=== PATIENT | female | born 1990 | race Caucasian/White ===

== ENCOUNTER 2020-01-28 15:51 | Outpatient (REF) | payer OTHER, SELFPAY ==
--- NOTE | 2020-01-28 16:42 | XR_ITS ---
EXAMINATION: XR BILATERAL HAND AND RIGHT KNEE CLINICAL INFORMATION: Pain. COMPARISON: None TECHNIQUE: 3 views each hand. 3 views right knee. FINDINGS: Right Knee: There is a maintained tricompartment joint space. No visible fracture, loose bodies or bony erosive changes. The soft tissues are normal. Left Hand: The PIP, DIP and MCP joint spaces are maintained. No bony erosive changes, loose bodies or calcifications seen. No soft tissue swelling. No underlying fracture or dislocation. Right Hand: There are maintained PIP, DIP and MCP joint spaces. No visible fracture, dislocation or loose body seen. No bony erosive changes. There is no soft tissue calcification. No soft tissue swelling noted. XR/XR hand LT min 3V IMPRESSION: Unremarkable right knee exam. Unremarkable bilateral hand exam.
--- NOTE | 2020-01-28 16:42 | XR_ITS ---
EXAMINATION: XR BILATERAL HAND AND RIGHT KNEE CLINICAL INFORMATION: Pain. COMPARISON: None TECHNIQUE: 3 views each hand. 3 views right knee. FINDINGS: Right Knee: There is a maintained tricompartment joint space. No visible fracture, loose bodies or bony erosive changes. The soft tissues are normal. Left Hand: The PIP, DIP and MCP joint spaces are maintained. No bony erosive changes, loose bodies or calcifications seen. No soft tissue swelling. No underlying fracture or dislocation. Right Hand: There are maintained PIP, DIP and MCP joint spaces. No visible fracture, dislocation or loose body seen. No bony erosive changes. There is no soft tissue calcification. No soft tissue swelling noted. XR/XR knee RT 3V IMPRESSION: Unremarkable right knee exam. Unremarkable bilateral hand exam.
--- NOTE | 2020-01-28 16:42 | XR_ITS ---
EXAMINATION: XR BILATERAL HAND AND RIGHT KNEE CLINICAL INFORMATION: Pain. COMPARISON: None TECHNIQUE: 3 views each hand. 3 views right knee. FINDINGS: Right Knee: There is a maintained tricompartment joint space. No visible fracture, loose bodies or bony erosive changes. The soft tissues are normal. Left Hand: The PIP, DIP and MCP joint spaces are maintained. No bony erosive changes, loose bodies or calcifications seen. No soft tissue swelling. No underlying fracture or dislocation. Right Hand: There are maintained PIP, DIP and MCP joint spaces. No visible fracture, dislocation or loose body seen. No bony erosive changes. There is no soft tissue calcification. No soft tissue swelling noted. XR/XR hand RT min 3V IMPRESSION: Unremarkable right knee exam. Unremarkable bilateral hand exam.
[2020-01-28 16:56] LABS: MANUAL DIFF FLAG NO
[2020-01-28 16:57] LABS: Basophils Absolute Auto 0.1 X10*3/uL (0.0-0.2); Basophils Percent Auto 0.5 % (0-2); Eosinophils Absolute Auto 0.2 X10*3/uL (0.0-0.4); Eosinophils Percent Auto 1.6 % (0-4); Hematocrit 37.4 % (37-47); Hemoglobin 12.5 g/dl (12.0-16.0); Imm Gran Abs Auto 0.03 X10*3/uL (0.00-0.03); Imm Gran Pct Auto 0.3 % (0.0-0.4); Lymphocytes Absolute Auto 2.1 X10*3/uL (1.2-4.9); Lymphocytes Percent Auto 20.5 % (20-40); Mean Corpuscular HGB Conc 33.4 g/dl (31.0-35.0); Mean Corpuscular Volume 89.7 fL (80-98); Mean Platelet Volume 10.2 fL (9.4-12.3); Monocytes Percent Auto 9.9 % (2-11); Neutrophils Absolute Auto 6.9 X10*3/uL (2.0-8.3); Neutrophils Percent Auto 67.2 % (45-73); Platelet Count 433 X10*3/uL (160-400); Red Blood Count 4.17 X10*6/uL (4.20-5.50); Red Cell Distribution Width 13.2 % (11.0-16.0); White Blood Count 10.2 X10*3/uL (4.8-10.8)
[2020-01-28 17:36] LABS: Alanine Aminotransferase 15 U/L (0-31); Albumin Level 4.5 g/dL (3.5-5.0); Alkaline Phosphatase 102 U/L (39-117); Anion Gap 14 (12-20); Aspartate Amino Transferase 28 U/L (5-31); Bilirubin Total 0.6 mg/dL (0.0-1.0); Blood Urea Nitrogen 12 mg/dL (9-16); C Reactive Protein 0.78 mg/dL (< or = 0.50); Calcium 8.8 mg/dL (8.4-10.2); Carbon Dioxide 26 mmol/L (22-29); Chloride 103 mmol/L (96-108); Estimated Glomerular Filt Rate > 60; Glucose Random 93 mg/dL (60-115); Potassium 4.2 mmol/l (3.3-5.1); Sodium 139 mmol/L (135-145); Total Protein 7.7 g/dL (6.5-8.0)
[2020-01-28 17:49] LABS: Erythrocyte Sedimentation Rate 11 MM/HR (0-20)
== END 2020-01-28 15:52 | disposition home or self-care (01) ==
LOC: HO.LAB 15:51
PROVIDERS: PCP Internal Medicine; Referring Provider Internal Medicine; Visit Provider Student in an Organized Health Care Education/Training Program
DX: G89.29 Other chronic pain (principal); M54.5 Low back pain; M25.50 Pain in unspecified joint
CPT/HCPCS: 36415; 73130; 73562; 80053; 85025; 85652; 86140; 99212

== ENCOUNTER 2020-05-01 16:08 | Outpatient (REF) | payer OTHER, SELFPAY ==
[2020-05-01 17:21] LABS: MANUAL DIFF FLAG NO
[2020-05-01 17:24] LABS: Basophils Absolute Auto 0.1 X10*3/uL (0.0-0.2); Basophils Percent Auto 0.6 % (0-2); Eosinophils Absolute Auto 0.2 X10*3/uL (0.0-0.4); Eosinophils Percent Auto 1.9 % (0-4); Hematocrit 37.3 % (37-47); Hemoglobin 12.3 g/dl (12.0-16.0); Imm Gran Abs Auto 0.02 X10*3/uL (0.00-0.03); Imm Gran Pct Auto 0.2 % (0.0-0.4); Lymphocytes Absolute Auto 2.5 X10*3/uL (1.2-4.9); Lymphocytes Percent Auto 28.7 % (20-40); Mean Corpuscular Hemoglobin 30.1 pg (27.0-33.0); Mean Corpuscular Volume 91.2 fL (80-98); Mean Platelet Volume 10.9 fL (9.4-12.3); Monocytes Absolute Auto 0.8 X10*3/uL (0.1-1.2); Neutrophils Absolute Auto 5.1 X10*3/uL (2.0-8.3); Neutrophils Percent Auto 59.6 % (45-73); Platelet Count 508 X10*3/uL (160-400); Red Blood Count 4.09 X10*6/uL (4.20-5.50); Red Cell Distribution Width 12.9 % (11.0-16.0); White Blood Count 8.6 X10*3/uL (4.8-10.8)
[2020-05-01 17:56] LABS: Alanine Aminotransferase 16 U/L (0-31); Albumin Level 4.5 g/dL (3.5-5.0); Alkaline Phosphatase 92 U/L (39-117); Anion Gap 17 (12-20); Aspartate Amino Transferase 26 U/L (5-31); Bilirubin Total 0.3 mg/dL (0.0-1.0); Blood Urea Nitrogen 13 mg/dL (9-16); C Reactive Protein 0.65 mg/dL (< or = 0.50); Calcium 9.5 mg/dL (8.4-10.2); Carbon Dioxide 25 mmol/L (22-29); Chloride 103 mmol/L (96-108); Estimated Glomerular Filt Rate > 60; Glucose Random 97 mg/dL (60-115); Potassium 4.3 mmol/L (3.3-5.1); Sodium 141 mmol/L (135-145)
[2020-05-01 18:11] LABS: Erythrocyte Sedimentation Rate 15 MM/HR (0-20)
== END 2020-05-01 16:09 | disposition home or self-care (01) ==
LOC: HO.LAB 16:08
PROVIDERS: PCP Internal Medicine; Visit Provider Student in an Organized Health Care Education/Training Program
DX: G89.29 Other chronic pain (principal); M54.5 Low back pain; M25.561 Pain in right knee
CPT/HCPCS: 36415; 80053; 85025; 85652; 86140; 99212

== ENCOUNTER 2020-05-11 15:06 | Outpatient (REF) | payer OTHER, SELFPAY ==
--- NOTE | ~2020-05-11 | MR_ITS ---
EXAMINATION: MR KNEE WITHOUT CONTRAST, RIGHT CLINICAL INFORMATION: Knee pain. COMPARISON: None TECHNIQUE: MRI of the knee without contrast was performed using routine sequences on a high-field scanner. FINDINGS: MENISCI: Medial Meniscus: Intact. Lateral Meniscus: Intact. LIGAMENTS: Cruciate: Intact. Collateral: Intact. EXTENSOR MECHANISM: Intact. ARTICULAR CARTILAGE/BONE: No focal cartilage loss in 3 compartments. No suspicious marrow signal changes. No fracture. JOINT FLUID AND BURSAE: Small effusion. Tiny Mendiola's cyst. MR/MR knee RT wo con IMPRESSION: 1. Menisci appear intact without evidence of discrete tear. 2. Cruciate and collateral ligaments appear intact. 3. Small effusion.
== END 2020-05-11 15:07 | disposition home or self-care (01) ==
LOC: HO.MRI 15:06
PROVIDERS: Visit Provider Student in an Organized Health Care Education/Training Program
DX: M25.561 Pain in right knee (principal); G89.29 Other chronic pain
CPT/HCPCS: 73721

== ENCOUNTER → 2020-10-06 11:34 | Outpatient (BNVA) | payer OTHER, SELFPAY | PROVIDERS: PCP Internal Medicine; Visit Provider Student in an Organized Health Care Education/Training Program | DX: M54.5 Low back pain (principal); G89.29 Other chronic pain | CPT/HCPCS: 99212 ==

== ENCOUNTER 2020-10-09 07:57 | Outpatient (REF) | payer OTHER, SELFPAY ==
[2020-10-09 11:22] LABS: Cholesterol 169 mg/dL; HDL Cholesterol 54 mg/dL; LDL Cholesterol Calculated 94 mg/dl; Triglycerides 107 mg/dL
[2020-10-09 11:44] LABS: TSH reflex Free T4 0.36 uIU/mL (0.32-4.0); Vitamin D 25-OH Total 33.3 ng/mL (>30)
== END 2020-10-09 07:58 | disposition home or self-care (01) ==
LOC: HO.WFDLDS 07:57
PROVIDERS: Visit Provider Internal Medicine
DX: Z00.01 Encounter for general adult medical examination with abnormal findings (principal)
CPT/HCPCS: 36415; 80061; 82306; 84443

== ENCOUNTER 2020-10-14 12:10 | Outpatient (REF) | payer OTHER, SELFPAY ==
--- NOTE | ~2020-10-14 | MR_ITS ---
EXAMINATION: MR LUMBAR SPINE WITHOUT CONTRAST CLINICAL INFORMATION: Lower back pain, tightness, stiffness. Right leg/knee pain. COMPARISON: Lumbar spine radiographs dated 05/23/2019. TECHNIQUE: MRI of the lumbar spine was obtained using routine sequences without contrast. FINDINGS: VERTEBRAL BODIES AND PARASPINAL STRUCTURES: Normal vertebral body alignment. The lumbar lordosis is maintained. No acute fracture or subluxation. No loss of vertebral body or intervertebral disc height. The intervertebral disks are well hydrated. No abnormal marrow signal. No evidence of acute osseous injury. Simple right-sided renal cyst. Findings are not clinically significant and no follow-up imaging is recommended. The visualized paraspinal soft tissues are otherwise unremarkable. CONUS MEDULLARIS AND CAUDA EQUINA: Normal, terminating at the level of L1. SPINAL LEVELS: T12-L1: No significant disc bulge. No central canal or neural foraminal stenosis. L1-L2: No significant disc bulge. No central canal or neural foraminal stenosis. L2-L3: No significant disc bulge. No central canal or neural foraminal stenosis. L3-L4: No significant disc bulge. No central canal or neural foraminal stenosis. L4-L5: No significant disc bulge. No central canal or neural foraminal stenosis. L5-S1: No significant disc bulge. No central canal or neural foraminal stenosis. MR/MR lumbar spine wo con IMPRESSION: Unremarkable examination.
== END 2020-10-14 12:11 | disposition home or self-care (01) ==
LOC: HO.MRI 12:10
PROVIDERS: Visit Provider Student in an Organized Health Care Education/Training Program
DX: M54.5 Low back pain (principal); G89.29 Other chronic pain
CPT/HCPCS: 72148

== ENCOUNTER 2020-10-22 08:49 | Outpatient (REF) | payer OTHER, SELFPAY ==
[2020-10-25 16:47] LABS: TS Negative Control Passed; TS Panel A 0; TS Panel B 0; TS Positive Control Passed; TSpotTB Negative (SeeBelow)
== END 2020-10-22 08:50 | disposition home or self-care (01) ==
LOC: HO.HMGCLDS 08:49
PROVIDERS: PCP Internal Medicine; Visit Provider Internal Medicine
DX: Z11.1 Encounter for screening for respiratory tuberculosis (principal)
CPT/HCPCS: 36415; 86481

== ENCOUNTER → 2021-02-12 10:00 | Outpatient (BNVA) | payer OTHER, SELFPAY | PROVIDERS: PCP Internal Medicine; Visit Provider Nurse Practitioner Family | DX: M54.59 Other low back pain (principal); G89.29 Other chronic pain | CPT/HCPCS: 99212 ==

== ENCOUNTER 2021-07-02 11:23 | Outpatient (REF) | payer OTHER, SELFPAY ==
[2021-07-02 13:24] LABS: MANUAL DIFF FLAG NO
[2021-07-02 13:27] LABS: Basophils Absolute Auto 0.1 X10*3/uL (0.0-0.2); Basophils Percent Auto 0.5 % (0-2); Eosinophils Absolute Auto 0.2 X10*3/uL (0.0-0.4); Eosinophils Percent Auto 1.6 % (0-4); Hemoglobin 13.7 g/dl (12.0-16.0); Imm Gran Abs Auto 0.04 X10*3/uL (0.00-0.03); Imm Gran Pct Auto 0.4 % (0.0-0.4); Lymphocytes Absolute Auto 1.4 X10*3/uL (1.2-4.9); Lymphocytes Percent Auto 14.9 % (20-40); Mean Corpuscular HGB Conc 33.4 g/dl (31.0-35.0); Mean Corpuscular Hemoglobin 30.7 pg (27.0-33.0); Mean Corpuscular Volume 91.9 fL (80.0-98.0); Mean Platelet Volume 10.7 fL (9.4-12.3); Monocytes Absolute Auto 0.6 X10*3/uL (0.1-1.2); Monocytes Percent Auto 6.5 % (2-11); Neutrophils Absolute Auto 6.9 x10*3/uL (2.0-8.3); Neutrophils Percent Auto 76.1 % (45-73); Platelet Count 460 X10*3/uL (160-400); Red Blood Count 4.46 X10*6/uL (4.20-5.50); White Blood Count 9.1 X10*3/uL (4.8-10.8)
[2021-07-02 14:04] LABS: Erythrocyte Sedimentation Rate 9 MM/HR (0-20)
[2021-07-02 14:34] LABS: Alanine Aminotransferase 17 U/L (0-31); Anion Gap 13 (12-20); Blood Urea Nitrogen 9 mg/dL (9-16); C Reactive Protein 1.74 mg/dL (< or = 0.50); Calcium 9.3 mg/dL (8.4-10.2); Carbon Dioxide 26 mmol/L (22-29); Chloride 104 mmol/L (96-108); Cholesterol 214 mg/dL; Estimated Glomerular Filt Rate > 60; Glucose Fasting 101 mg/dL (60-99); HDL Cholesterol 48 mg/dL; LDL Cholesterol Calculated 139 mg/dl; Potassium 4.5 mmol/L (3.3-5.1); Sodium 138 mmol/L (135-145); Triglycerides 136 mg/dL
[2021-07-02 14:55] LABS: TSH reflex Free T4 0.39 uIU/mL (0.32-4.0); Vitamin D 25-OH Total 15.3 ng/mL (>30)
== END 2021-07-02 11:24 | disposition home or self-care (01) ==
LOC: HO.WFDLDS 11:23
PROVIDERS: Visit Provider Internal Medicine
DX: Z00.01 Encounter for general adult medical examination with abnormal findings (principal); M25.50 Pain in unspecified joint; F32.A Depression, unspecified; F41.9 Anxiety disorder, unspecified; M79.7 Fibromyalgia
CPT/HCPCS: 36415; 80048; 80061; 82306; 84443; 84460; 85025; 85652; 86140

== ENCOUNTER 2022-07-18 10:09 | Outpatient (REF) | payer OTHER, SELFPAY ==
[2022-07-18 11:42] LABS: Hematocrit 41.8 % (37.0-47.0); Hemoglobin 14.2 g/dl (12.0-16.0); Mean Corpuscular Hemoglobin 30.9 pg (27.0-33.0); Mean Corpuscular Volume 91.1 fL (80.0-98.0); Mean Platelet Volume 10.3 fL (9.4-12.3); Platelet Count 470 X10*3/uL (160-400); Red Blood Count 4.59 X10*6/uL (4.20-5.50); Red Cell Distribution Width 12.4 % (11.0-16.0); White Blood Count 8.6 X10*3/uL (4.8-10.8)
[2022-07-18 12:35] LABS: Alanine Aminotransferase 14 U/L (0-31); Albumin Level 4.4 g/dL (3.5-5.0); Alkaline Phosphatase 81 U/L (39-117); Anion Gap 14 (12-20); Aspartate Amino Transferase 24 U/L (5-31); Bilirubin Total 0.5 mg/dL (0.0-1.0); Blood Urea Nitrogen 9 mg/dL (9-16); Calcium 9.5 mg/dL (8.4-10.2); Carbon Dioxide 26 mmol/L (22-29); Chloride 105 mmol/L (96-108); Cholesterol 173 mg/dL; Estimated Glomerular Filt Rate > 60; Glucose Fasting 94 mg/dL (60-99); HDL Cholesterol 38 mg/dL; LDL Cholesterol Calculated 99 mg/dl; Potassium 4.7 mmol/L (3.3-5.1); Sodium 140 mmol/L (135-145); Total Protein 7.5 g/dL (6.5-8.0); Triglycerides 180 mg/dL
[2022-07-18 12:36] LABS: TSH reflex Free T4 0.66 uIU/mL (0.32-4.0)
== END 2022-07-18 10:10 | disposition home or self-care (01) ==
LOC: HO.WFDLDS 10:09
PROVIDERS: Visit Provider Nurse Practitioner Family
DX: E66.9 Obesity, unspecified (principal); F32.A Depression, unspecified; F41.9 Anxiety disorder, unspecified; J45.20 Mild intermittent asthma, uncomplicated; M25.50 Pain in unspecified joint; M79.7 Fibromyalgia; M54.50 Low back pain, unspecified
CPT/HCPCS: 36415; 80053; 80061; 82306; 84443; 85027

== ENCOUNTER 2022-07-22 11:23 | Outpatient (REF) | payer OTHER, SELFPAY ==
[2022-07-22 13:56] LABS: Hematocrit 42.2 % (37.0-47.0); Hemoglobin 14.4 g/dl (12.0-16.0); Mean Corpuscular HGB Conc 34.1 g/dl (31.0-35.0); Mean Corpuscular Hemoglobin 31.2 pg (27.0-33.0); Mean Corpuscular Volume 91.5 fL (80.0-98.0); Mean Platelet Volume 10.6 fL (9.4-12.3); Platelet Count 464 X10*3/uL (160-400); Red Blood Count 4.61 X10*6/uL (4.20-5.50); Red Cell Distribution Width 12.2 % (11.0-16.0); White Blood Count 8.2 X10*3/uL (4.8-10.8)
== END 2022-07-22 11:24 | disposition home or self-care (01) ==
LOC: HO.WFDLDS 11:23
PROVIDERS: Visit Provider Nurse Practitioner Family
DX: D75.839 Thrombocytosis, unspecified (principal)
CPT/HCPCS: 36415; 85027

== ENCOUNTER 2022-09-28 09:28 | Outpatient (REF) | payer OTHER, SELFPAY ==
[2022-09-30 20:54] LABS: TS Negative Control Passed; TS Panel A 0; TS Panel B 0; TS Positive Control Passed; TSpotTB Negative (Negative)
== END 2022-09-28 09:29 | disposition home or self-care (01) ==
LOC: HO.WFDLDS 09:28
PROVIDERS: Visit Provider Nurse Practitioner Family
DX: Z11.1 Encounter for screening for respiratory tuberculosis (principal)
CPT/HCPCS: 36415; 86481

== ENCOUNTER → 2022-10-26 14:05 | Outpatient (BNV) | payer OTHER, SELFPAY | PROVIDERS: PCP Nurse Practitioner Family; Visit Provider Internal Medicine | DX: D75.839 Thrombocytosis, unspecified (principal) | CPT/HCPCS: 99204 ==

== ENCOUNTER 2022-12-30 08:31 | Outpatient (AMB) | payer OTHER, SELFPAY ==
--- NOTE | 2022-12-30 08:32 | MHC.PC.OV ---
Vital Signs 12/30/22 08:33 Height 5 ft 4 in Weight 193 lb 8 oz BMI 33.2 BP 118/78 Blood Pressure Location Lt brachial Position Sitting Respiration 18 Pulse 80 Pulse Source Pulse Oximeter Temp 98.3 F Temp Source Oral Pulse Oximetry (%) 96 Oxygen Delivery Method Room Air Intake Visit Reasons: Physical exam Intake Note: Patient is here for her physical today. Patient would like to talk about hormone testing. Is last menstrual period known: Yes Last menstrual period: 12/23/22 Allergies seasonal allergies Allergy (Intermediate, Uncoded 12/30/22 08:43) Itchy Eyes Medication List - Last Reconciled 12/30/22 by Prince Lindo CNP albuterol sulfate 90 mcg/actuation (Ventolin HFA) 2 puffs inhalation Q4-6H PRN duloxetine 30 mg PO BID 30 days Tobacco use date assessed: 12/30/22 Dental Screening Dental Screen Date: 12/30/22 Did you have a dental visit in the last 12 months?: Yes Did you have a dental problem in the last 6 months where you did not have access to dental care?: No Was dental information given to patient?: Patient has dentist HPI HPI Comments History of Present Illness Details 32-year-old female presents for a complete physical exam. She has past medical history significant for asthma, anxiety, and depression. She was last evaluated in the office in July for anxiety depression and was advised to follow-up in a month. She admits to taking her medications as prescribed with controlled anxiety and depression symptoms. She denies acutes symptoms at this time. She was evaluated by [facility] hematology on 10/26/2022 for chronic mild thrombocytosis and was deemed medically stable with no required follow up. She notes that her last pap smear test was last year at [facility]: normal She states she stopped taking her Ortho Tri-Cyclen oral contraceptive3 months ago because she is trying to get She reports h/o hot flashes, almost every night, for the past year and wish to get hormone testing. [facility] Medical History Chronic tonsillitis History of COVID-19 Fibromyalgia Anxiety and depression History of depression History of insomnia Mild intermittent asthma Low back pain Hx of ectopic Surgical History Hx of unilateral salpingectomy History of loop electrical excision procedure (LEEP) Family History Mother Arthritis Fibromyalgia HTN (hypertension) Hyperlipidemia Mental health disorder Father HTN (hypertension) Arthritis Hyperlipidemia Paternal Grandmother Diabetes Maternal Grandmother Heart disease Social History Household Members: Family Housing: Apartment Alcohol intake: current Patient Tobacco Use Status: Never used Tobacco e-Cigarette/Vaping Use: Never Used Second Hand Smoke Exposure: No service: No Current occupational status: employed Current occupation: [employer] Current occupational exposures/hazards: No Cognitive needs: No Hearing needs: No Vision needs: No Female Reproductive History Menstrual Date of last menstrual period: 12/23/22 Questionnaire PHQ-9 Over the last 2 weeks, how often have you been bothered by any of the following problems? 1. Little interest or pleasure in doing things: not at all 2. Feeling down, depressed, or hopeless: not at all 3. Trouble falling or staying asleep, or sleeping too much: not at all 4. Feeling tired or having little energy: not at all 5. Poor appetite or overeating: not at all 6. Feeling bad about yourself - or that you are a failure or have let yourself or your family down: not at all 7. Trouble concentrating on things, such as reading the newspaper or watching television: not at all 8. Moving or speaking so slowly that other people could have noticed. Or the opposite - being so fidgety or restless that you have been moving around a lot more than usual: not at all 9. Thoughts that you would be better off or of hurting yourself in some way: not at all Total score: 0 Depression Screening Interpretation: Negative Depression Screening Done: Yes Source: Developed by Drs. Jorge Hazel, Carmita Martinez, Eric Duron and colleagues, with an educational emily from [employer]. Thrive Questionnaire Date Thrive assessed: 07/18/22 JAVIER-7 AMB Questionnaire JAVIER-7 Date JAVIER - 7 assessed: 12/30/22 Feeling nervous, anxious, or on edge: 0 = Not at all Not being able to stop or control worryin = Not at all Worrying too much about different things: 0 = Not at all Trouble relaxin = Not at all Being so restless that it is hard to sit still: 0 = Not at all Becoming easily annoyed or irritable: 0 = Not at all Feeling afraid as if something awful might happen: 0 = Not at all Total JAVIER-7 score (0-4 normal; 5-9 mild; 10-14 moderate; 15-21 severe): 0 Source: Developed by Drs. Jorge Hazel, Carmita Martinez, Eric Duron and colleagues, with an educational emily from [employer]. Review of Systems Const Details: Denies chills, Denies fatigue, Denies fever(s), Denies headache(s) and Denies weakness HEENT Denies change in vision, Denies dizziness, Denies headache(s), Denies hearing loss, Denies nasal congestion, Denies sinus pain, Denies sinus pressure and Denies sore throat Card Denies chest pain, Denies lightheadedness, Denies dyspnea and Denies other (palpitations) Resp Denies cough, Denies dyspnea and Denies wheezing GI Denies abdominal pain, Denies melena, Denies hematochezia, Denies change in bowel habits, Denies dyspepsia and Denies nausea Denies hematuria and Denies dysuria Musc Denies abnormal gait, Denies myalgias, Denies arthralgias, Denies numbness and Denies tingling Skin/Breast Denies rash, Denies unusual bruising and Denies wounds Neuro Denies abnormal gait, Denies dizziness, Denies headache(s), Denies memory loss, Denies numbness, Denies Sensory deficit (Neuro), Denies tingling and Denies weakness Psych Denies anxiety, Denies depression and Denies memory loss Endo Denies cold intolerance, Denies fatigue, Denies heat intolerance, Denies polydipsia and Denies polyuria Ollie/Lymph Denies easy bleeding and Denies easy bruising Aller/Immun Denies wheezing Physical exam (Primary Care) Vital Signs: Last Vital Signs Temp 98.3 F 12/30/22 08:33 Pulse 80 12/30/22 08:33 BP 118/78 12/30/22 08:33 Pulse Ox 96 12/30/22 08:33 Oxygen Delivery Method Room Air 12/30/22 08:33 BMI result Body Mass Index 33.2 Tobacco/Smoking Status: Tobacco use Status Tobacco use date assessed 12/30/22 12/30/22 08:47 Patient Tobacco Use Status Never used Tobacco 12/30/22 08:47 e-Cigarette/Vaping Use Never Used 12/30/22 08:47 Depression Screening Interpretation: Negative Thrive Assessment: Date of Thrive Assessment Date Thrive assessed 07/18/22 12/30/22 08:47 Const Other: General: no acute distress, well developed, alert and awake Nutritional Appearance: well nourished Orientation/consciousness: patient oriented x3 HENMT Head: Yes normocephalic and Yes atraumatic Ears: hearing grossly normal bilaterally and TM's normal bilaterally General nose exam: Normal external nose present and Normal nares present Mouth: Normal oral and palatal mucosa present and moist mucous membranes Teeth and gingiva: dentition normal Throat: Yes oropharynx normal Eyes Pupils: Equal, round and reactive pupils present and Pupil accommodation reflex normal EOM: EOMs intact bilaterally Neck Neck: Yes normal visual inspection, Yes no lymphadenopathy and Yes trachea midline Thyroid: Thyroid normal Carotids: no bruits Lymphatic: no lymphadenopathy noted Chest Chest palpation & inspection: normal inspection of the chest Resp Effort & Inspection: normal respiratory effort Auscultation: clear to auscultation bilaterally Cardio Rate: regular rate Rhythm: regular rhythm Heart sounds: S1 normal heart sound present, S2 normal heart sound present, no gallops, no murmurs and no rubs Bruits: no abdominal aortic bruits and no carotid bruits GI Palpation (GI): No Abdominal aortic bruit present, Soft to palpation, nontender, No hepatosplenomegaly present and No Rebound tenderness present Auscultation: normal bowel sounds General: Yes no CVA tenderness Back/Spine/Pelvis Back: no CVA tenderness Cervical Spine: cervical ROM normal and No Cervical spine tenderness Thoracic/Lumbar Spine: thoraco-lumbar ROM normal, No pain with thoraco-lumbar ROM, No thoracic spinal tenderness and No lumbar spinal tenderness Skin General: warm and dry. Normal skin color. Normal skin turgor Lesions: no lesions Rashes: no rashes Trauma: no lacerations or abrasions Wounds: no wounds Nails: normal Neuro General: patient oriented x3, gait normal and CN's II-XI intact bilaterally Cranial nerves: Yes Equal, round and reactive pupils present Cognition (Neuro): normal cognition Gait exam (Neuro): Normal gait present Motor exam (neuro): 5/5 motor strength present throughout Sensory Exam: No Sensory deficit (Neuro) Deep tendon reflexes (DTR's): Right patellar reflex intensity grade: 2+ and Left patellar reflex intensity grade: 2+ Extrem General: Yes normal to inspection, No edema and No calf tenderness Psych Appearance: grossly normal Affect: normal affect Attitude: cooperative Thought process: Normal thought process present Assessment and Plan Assessment & Plan (1) Normal physical examination, routine: Code(s): Z00.00 - Encounter for general adult medical examination without abnormal findings Plan: No significant physical restrictions or limitations noted Advised to follow-up with chemical laboratory technician to address nighttime hot flashes Follow-up in 3 months for anxiety and depression Return sooner with symptoms or concerns Verbalized understanding and agreed with treatment plan. (2) Anxiety and depression: Code(s): F41.9 - Anxiety disorder, unspecified; F32.A - Depression, unspecified Plan: PHQ-9 and JAVIER-7 scores are negative Reports controlled anxiety and depression symptoms on duloxetine Continue to take duloxetine as prescribed Routine exercise encouraged Follow-up in 4 months or return sooner with worsening or new symptoms Verbalized understanding and agreed with treatment plan. Coding Level of Care Code Est Pt Prev Care [id number]) Diagnoses Normal physical examination, routine Z00.00 Anxiety and depression F41.9; F32.A
[2022-12-30 08:33] VITALS: BP 118/78; PULSE 80; RESP 18; TEMP 36.8; O2SAT 96; BMI 33.2
== END 2022-12-30 09:03 | disposition home or self-care (01) ==
PROVIDERS: PCP Nurse Practitioner Family; Visit Provider Nurse Practitioner Family
DX: Z00.00 Encounter for general adult medical examination without abnormal findings (principal); F41.9 Anxiety disorder, unspecified; F32.A Depression, unspecified
CPT/HCPCS: 99395

== ENCOUNTER 2024-01-31 07:58 | Outpatient (AMB) | payer OTHER, SELFPAY ==
--- NOTE | 2024-01-31 08:02 | A.OFFPC_ITS ---
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: No Is last menstrual period known: Yes Last menstrual period: 01/23/24 Post menopausal: No Patient : No Allergies seasonal allergies Allergy (Intermediate, Uncoded 01/31/24 08:14) Itchy Eyes Medication List - Last Reconciled 01/31/24 by Prince Lindo CNP albuterol sulfate 90 mcg/actuation (Ventolin HFA) 2 puffs inhalation Q4-6H PRN duloxetine 30 mg PO BID 30 days Tobacco use date assessed: 01/31/24 Dental Screening Dental Screen Date: 01/31/24 Did you have a dental visit in the last 12 months?: Yes Did you have a dental problem in the last 6 months where you did not have access to dental care?: No Was dental information given to patient?: Patient has dentist HPI HPI Comments History of Present Illness Details 33-year-old female presents for an exten ded physical exam Her last office visit was on 12/30/2022 She has past medical history significant for asthma, thrombocytosis, back pain, fibromyalgia, anxiety, and depression She has not taking duloxetine for several months. She abruptly stopped taking the medication because she was trying to conceive. However, she was told she is unable to conceive and would have to do an IVF She notes that her anxiety and depressive symptoms are a little controlled. She notes anxiety and depressive symptoms. Her sleep is frequently interrupted by dreams or thinking about past stuff. She has history of psychotherapy but does not interested in therapy. She wants to resume taking Duloxetine She generally eats healthy. She does not exercise. She is willing to be referred to a dietitian Nonsmoker. Drinks 2 glasses of wine twice monthly. 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 early this eary: normal Last Tdap was on 07/18/2017 She has not been vaccinated for the flu vaccine this season and requests the vaccine She received the initial covid vaccines but not interested in the boosters [facility] Medical History Chronic tonsillitis History of COVID-19 Fibromyalgia Anxiety and depression History of depression History of insomnia Mild intermittent asthma Low back pain Hx of ectopic Surgical History Hx of unilateral salpingectomy History of loop electrical excision procedure (LEEP) Family History Mother Arthritis Fibromyalgia HTN (hypertension) Hyperlipidemia Mental health disorder Father HTN (hypertension) Arthritis Hyperlipidemia Paternal Grandmother Diabetes Maternal Grandmother Heart disease Social History Household Members: Family Housing: Apartment Alcohol intake: current Patient Tobacco Use Status: Never used Tobacco e-Cigarette/Vaping Use: Never Used Second Hand Smoke Exposure: No service: No Current occupational status: employed Current occupation: [employer]ER Current occupational exposures/hazards: No Cognitive needs: No Hearing needs: No Vision needs: No Female Reproductive History Menstrual Date of last menstrual period: 01/23/24 Questionnaire PHQ-9 Over the last 2 weeks, how often have you been bothered by any of the following problems? 1. Little interest or pleasure in doing things: several days 2. Feeling down, depressed, or hopeless: several days 3. Trouble falling or staying asleep, or sleeping too much: several days 4. Feeling tired or having little energy: several days 5. Poor appetite or overeating: several days 6. Feeling bad about yourself - or that you are a failure or have let yourself or your family down: not at all 7. Trouble concentrating on things, such as reading the newspaper or watching television: several days 8. Moving or speaking so slowly that other people could have noticed. Or the opposite - being so fidgety or restless that you have been moving around a lot more than usual: several days 9. Thoughts that you would be better off or of hurting yourself in some way: not at all Total score: 7 Depression Screening Interpretation: Positive Depression Screening Done: Yes 96284 - PHQ-9 Billing: Yes Source: Developed by Drs. Jorge Hazel, Carmita Martinez, Eric Duron and colleagues, with an educational emily from [employer]. Thrive Questionnaire Date Thrive assessed: 01/31/24 I am a: Patient What is your living situation today?: I have a steady place to live Within the past 12 months, did the food you bought not last and you didn't have the money to get more?: I choose not to answer this question Within the past 12 months, did you worry whether your food would run out before you got money to buy more?: I choose not to answer this question Do you have trouble paying for medicines?: No Do you have trouble getting transportation to medical appointments?: No Do you have trouble paying your heating and electricity bill?: No Do you have trouble taking care of your child, family member or friend?: No Do you have trouble with day-to-day activities such as bathing, preparing meals, shopping, managing finances, etc.?: No Are you currently unemployed and looking for a job?: No Are you interested in more education?: No Please select the resources that you would like help with: None Currently or been in a relationship where the following occur: No concerns reported THRIVE Score: 0 AUDIT C Alcohol Use Questionnaire (AUDIT-C) 1. How often do you have a drink containing alcohol?: Monthly or less 2. How many drinks containing alcohol do you have on a typical day when you are drinking?: 3 or 4 3. How often do you have six or more drinks on one occasion?: Less than monthly Total Score: 3 Score Reviewed/Action Taken: Yes JAVIER-7 AMB Questionnaire JAVIER-7 Date JAVIER - 7 assessed: 01/31/24 Feeling nervous, anxious, or on edge: 2 = More than half the days Not being able to stop or control worryin = More than half the days Worrying too much about different things: 2 = More than half the days Trouble relaxin = More than half the days Being so restless that it is hard to sit still: 2 = More than half the days Becoming easily annoyed or irritable: 2 = More than half the days Feeling afraid as if something awful might happen: 2 = More than half the days Total JAVIER-7 score (0-4 normal; 5-9 mild; 10-14 moderate; 15-21 severe): 14 Source: Developed by Carmita Krueger.W. Juan, Eric Duron and colleagues, with an educational emily from [employer]. JAVIER-7 Assessment Billing JAVIER-7 Assessment Tool: JAVIER-7 Assessment 52232 ACT Questionnaire In the past 4 weeks, how much of the time did your asthma keep you from getting as much done at work, school or at home?: A little of the time During the past 4 weeks, how often have you had shortness of breath?: 3-6 times a week During the past 4 weeks, how often did your asthma symptoms wake you up at night or earlier than usual in the morning?: Once or twice per week During the past 4 weeks, how often have you had to use your rescue inhaler or nebulizer medication?: 1-2 times a week How would you rate your asthma control during the past 4 weeks?: Well controlled ACT Interpretation: Positive Score: 17 Review of Systems Const Details: Denies chills, Denies fatigue, Denies fever(s), Denies headache(s) and Denies weakness HEENT Denies change in vision, Denies dizziness, Denies headache(s), Denies hearing loss, Denies nasal congestion, Denies sinus pain, Denies sinus pressure and Denies sore throat Card Denies chest pain, Denies lightheadedness, Denies dyspnea and Denies other (palpitations) Resp Denies cough, Denies dyspnea and Denies wheezing GI Denies abdominal pain, Denies melena, Denies hematochezia, Denies change in bowel habits, Denies dyspepsia and Denies nausea Denies hematuria and Denies dysuria Musc Denies abnormal gait, Denies myalgias, Denies arthralgias, Denies numbness and Denies tingling Skin/Breast Denies rash, Denies unusual bruising and Denies wounds Neuro Denies abnormal gait, Denies dizziness, Denies headache(s), Denies memory loss, Denies numbness, Denies Sensory deficit (Neuro), Denies tingling and Denies weakness Psych Denies anxiety, Denies depression and Denies memory loss Endo Denies cold intolerance, Denies fatigue, Denies heat intolerance, Denies polydipsia and Denies polyuria Ollie/Lymph Denies easy bleeding and Denies easy bruising Aller/Immun Denies wheezing Physical exam (Primary Care) Vital Signs: Last Vital Signs Temp 98.7 F 01/31/24 08:10 Pulse 79 01/31/24 08:10 Resp 16 01/31/24 08:10 BP 110/74 01/31/24 08:10 Pulse Ox 97 01/31/24 08:10 Oxygen Delivery Method Room Air 01/31/24 08:10 BMI result Body Mass Index 34.4 Tobacco/Smoking Status: Tobacco use Status Tobacco use date assessed 01/31/24 01/31/24 08:09 Patient Tobacco Use Status Never used Tobacco 01/31/24 08:06 e-Cigarette/Vaping Use Never Used 01/31/24 08:06 PHQ-9: PHQ-9 Score PHQ-9: Total score 7 01/31/24 08:51 Depression Screening Interpretation: Positive Thrive Assessment: Date of Thrive Assessment Date Thrive assessed 01/31/24 01/31/24 08:09 Currently or been in a relationship where the following occur: No concerns reported Const Other: General: no acute distress, well developed, alert and awake Nutritional Appearance: well nourished Orientation/consciousness: patient oriented x3 HENMT Head: Yes normocephalic and Yes atraumatic Ears: hearing grossly normal bilaterally and TM's normal bilaterally General nose exam: Normal external nose present and Normal nares present Mouth: Normal oral and palatal mucosa present and moist mucous membranes Teeth and gingiva: dentition normal Throat: Yes oropharynx normal Eyes Pupils: Equal, round and reactive pupils present and Pupil accommodation reflex normal EOM: EOMs intact bilaterally Neck Neck: Yes normal visual inspection, Yes no lymphadenopathy and Yes trachea midline Thyroid: Thyroid normal Carotids: no bruits Lymphatic: no lymphadenopathy noted Chest Chest palpation & inspection: normal inspection of the chest Resp Effort & Inspection: normal respiratory effort Auscultation: clear to auscultation bilaterally Cardio Rate: regular rate Rhythm: regular rhythm Heart sounds: S1 normal heart sound present, S2 normal heart sound present, no gallops, no murmurs and no rubs Bruits: no abdominal aortic bruits and no carotid bruits GI Palpation (GI): No Abdominal aortic bruit present, Soft to palpation, nontender, No hepatosplenomegaly present and No Rebound tenderness present Auscultation: normal bowel sounds General: Yes no CVA tenderness Back/Spine/Pelvis Back: no CVA tenderness Cervical Spine: cervical ROM normal and No Cervical spine tenderness Thoracic/Lumbar Spine: thoraco-lumbar ROM normal, No pain with thoraco-lumbar ROM, No thoracic spinal tenderness and No lumbar spinal tenderness Skin General: warm and dry. Normal skin color. Normal skin turgor Lesions: no lesions Rashes: no rashes Trauma: no lacerations or abrasions Wounds: no wounds Nails: normal Neuro General: patient oriented x3, gait normal and CN's II-XI intact bilaterally Cranial nerves: Yes Equal, round and reactive pupils present Cognition (Neuro): normal cognition Gait exam (Neuro): Normal gait present Motor exam (neuro): 5/5 motor strength present throughout Sensory Exam: No Sensory deficit (Neuro) Deep tendon reflexes (DTR's): Right patellar reflex intensity grade: 2+ and Left patellar reflex intensity grade: 2+ Extrem General: Yes normal to inspection, No edema and No calf tenderness Psych Appearance: grossly normal Affect: normal affect Attitude: cooperative Thought process: Normal thought process present Office Procedures Flu Questionnaire Does the patient have a severe egg allergy?: No Does the patient have severe life threatening allergies?: No Does the patient have a fever or illness today?: No Has the patient ever had Guillain-[place] Syndrome?: No Has the patient ever had any past reaction to a flu shot?: No Immunizations Fluarix Triv [id number] (PF) 45 mcg (15 mcg x 3)/0.5 mL IM syringe Performing Provider: Prince Lindo CNP [place] [facility] Administered by: Samira Darling RN on 01/31/24 08:52 Dose Route Admin Location Dispensed Lot Number Expiration Date [facility] [employer] 0.5 mL IM Left Deltoid 0.5 mL [id number] 09/23/24 [id number] NOZA VIS Given Date VIS Provided VIS Publication Date 01/31/24 Single Vaccine 20 Eligibility Eligibility Date Funding Source Not [facility] Eligible 01/31/24 Private Coding Level of Care Code Est Pt Prev Care 18-39y(77069) Diagnoses Normal physical examination, routine Z00.00 Anxiety and depression F41.9; F32.A Sleep disturbance G47.9 Mild intermittent asthma J45.20 Obesity (BMI 30.0-34.9) E66.9 Routine eye exam Z01.00 Flu vaccine need Z23 Laboratory tests ordered as part of a complete physical exam (CPE) Z00.00 Additional Codes JAVIER-7 Assessment Billing - JAVIER-7 Assessment Tool: JAVIER-7 Assessment 78173 ([id number]) PHQ-9 - 18480 - PHQ-9 Billing: Yes ([id number]) Asthma Control Questionnaire - ACT Interpretation: Positive ([id number]) Assessment & Plan Assessment & Plan (1) Normal physical examination, routine: Code(s): Z00.00 - Encounter for general adult medical examination without abnormal findings Category: Medical Plan: No significant functional limitation noted Continue current treatment regimen Healthy diet and routine exercise encouraged Follow-up in 2 weeks for anxiety, depression, and labs review or sooner with worsening or new symptoms Verbalized understanding and agreed with the treatment plan (2) Anxiety and depression: Code(s): F41.9 - Anxiety disorder, unspecified; F32.A - Depression, unspecified Category: Medical Plan: Reports anxiety and depressive symptoms. She abruptly stop taking duloxetine several months ago because she was trying to conceive. She was told she can not conceive and would have to do an IVF. Her sleep is frequently interrupted PHQ-9 and JAVIER-7 scores revealed mild depression and moderate anxiety respectively Will start duloxetine 30 mg daily. Advised to take as prescribed. Instructed on the risks, benefits, and potential adverse reactions of the medications Routine exercise encouraged Follow-up in 2 weeks or sooner with worsening or new symptoms Verbalized understanding and agreed with the treatment plan (3) Sleep disturbance: Code(s): G47.9 - Sleep disorder, unspecified Category: Medical Plan: Plan as above (4) Mild intermittent asthma: Code(s): J45.20 - Mild intermittent asthma, uncomplicated Category: Medical Plan: ACT score is 17 Continue current treatment regimen Follow-up with symptoms or concerns Verbalized understanding and agreed with the plan (5) Obesity (BMI 30.0-34.9): Code(s): E66.9 - Obesity, unspecified Category: Medical Plan: She generally eats healthy. She has not been exercising She currently weighs 206 lb, BMI is 34.4 Healthy diet and routine exercise encouraged [place] [facility] [place] Follow-up as needed Verbalized understanding and agreed with the treatment plan (6) Routine eye exam: Code(s): Z01.00 - Encounter for examination of eyes and vision without abnormal findings Category: Medical Plan: Her last eye exam was several years ago Referred to Ophthalmology for routine eye exam (7) Flu vaccine need: Code(s): Z23 - Encounter for immunization Category: Medical Plan: Flu vaccine administered today by our nurse (8) Laboratory tests ordered as part of a complete physical exam (CPE): Code(s): Z00.00 - Encounter for general adult medical examination without abnormal findings Category: Medical Plan: Fasting labs ordered as part of a complete physical exam. Advised to fast for at least 10 hours before getting labs drawn. May drink water Verbalized understanding and agreed with treatment plan. Orders: Orders TSH reflex Free T4 Today Z00.00 - Encounter for general adult medical examination without abnormal findings UA CC w/rflx Micro + Cult Today Z00.00 - Encounter for general adult medical examination without abnormal findings Complete Blood Count Auto Diff Today Z00.00 - Encounter for general adult medical examination without abnormal findings Comprehensive [place]. Panel Fast Today Z00.00 - Encounter for general adult medical examination without abnormal findings Lipid Panel Today Z00.00 - Encounter for general adult medical examination without abnormal findings Influenza [id number] Immunization Today Z23 - Encounter for immunization Referrals Nutrition/Dietitian Referral E66.9 - Obesity, unspecified Ophthalmology Referral Z01.00 - Encounter for examination of eyes and vision without abnormal findings Medications: New Fluarix Triv [id number] (PF) (flu vacc [id number] 6mos up(PF)) 0.5 mL IM ONCE 0.5 mL 0RF NS Z23 - Encounter for immunization Changed From duloxetine 30 mg PO BID 30 days 60 caps 3RF To duloxetine 30 mg PO .QD 30 days 30 caps 3RF
[2024-01-31 08:10] VITALS: BP 110/74; PULSE 79; RESP 16; TEMP 37.1; O2SAT 97; BMI 34.4
== END 2024-01-31 08:51 | disposition home or self-care (01) ==
LOC: HO.HMCFM 07:59
PROVIDERS: PCP Nurse Practitioner Family; Visit Provider Nurse Practitioner Family
DX: Z00.00 Encounter for general adult medical examination without abnormal findings (principal); F41.9 Anxiety disorder, unspecified; F32.A Depression, unspecified; G47.9 Sleep disorder, unspecified; J45.20 Mild intermittent asthma, uncomplicated; E66.9 Obesity, unspecified; Z23 Encounter for immunization

== ENCOUNTER → 2024-01-31 07:58 | Outpatient (BNVA) | payer OTHER, SELFPAY | PROVIDERS: PCP Nurse Practitioner Family; Visit Provider Nurse Practitioner Family | DX: Z00.00 Encounter for general adult medical examination without abnormal findings (principal); Z23 Encounter for immunization; F41.9 Anxiety disorder, unspecified; F32.A Depression, unspecified; G47.9 Sleep disorder, unspecified; J45.20 Mild intermittent asthma, uncomplicated; E66.9 Obesity, unspecified | CPT/HCPCS: 90471; 90656; 96127; 96160; 99395 ==

== ENCOUNTER 2024-01-31 08:58 | Outpatient (REF) | payer OTHER, SELFPAY ==
[2024-01-31 11:21] LABS: MANUAL DIFF FLAG NO
[2024-01-31 11:30] LABS: Basophils Percent Auto 0.6 % (0-2); Eosinophils Absolute Auto 0.2 X10*3/uL (0.0-0.4); Eosinophils Percent Auto 2.1 % (0-4); Hematocrit 40.4 % (37.0-47.0); Hemoglobin 14.4 g/dl (12.0-16.0); Imm Gran Abs Auto 0.03 X10*3/uL (0.00-0.03); Imm Gran Pct Auto 0.4 % (0.0-0.4); Lymphocytes Absolute Auto 1.6 X10*3/uL (1.2-4.9); Lymphocytes Percent Auto 22.8 % (20-40); Mean Corpuscular HGB Conc 35.6 g/dl (31.0-35.0); Mean Corpuscular Hemoglobin 32.7 pg (27.0-33.0); Mean Corpuscular Volume 91.6 fL (80.0-98.0); Mean Platelet Volume 10.3 fL (9.4-12.3); Monocytes Absolute Auto 0.6 X10*3/uL (0.1-1.2); Monocytes Percent Auto 7.7 % (2-11); Neutrophils Absolute Auto 4.8 x10*3/uL (2.0-8.3); Neutrophils Percent Auto 66.4 % (45-73); Platelet Count 429 X10*3/uL (160-400); Red Blood Count 4.41 X10*6/uL (4.20-5.50); Red Cell Distribution Width 12.2 % (11.0-16.0); White Blood Count 7.2 X10*3/uL (4.8-10.8)
[2024-01-31 11:32] LABS: Appearance Urine Clear; Color Urine Yellow; Glucose Urine UA Negative (Negative); Leukocyte Esterase Urine Negative (Negative); Nitrite Urine Negative (Negative); Urine Blood Negative (Negative); Urine Ketones Negative (Negative); Urine Protein Negative (Neg-Trace)
[2024-01-31 12:43] LABS: Alanine Aminotransferase 43 U/L (0-31); Albumin Level 4.5 g/dL (3.5-5.0); Anion Gap 13 (12-20); Aspartate Amino Transferase 54 U/L (5-31); Bilirubin Total 0.5 mg/dL (0.0-1.0); Blood Urea Nitrogen 13 mg/dL (9-16); Calcium 9.5 mg/dL (8.4-10.2); Carbon Dioxide 26 mmol/L (22-29); Chloride 104 mmol/L (96-108); Cholesterol 198 mg/dL (<200); Estimated Glomerular Filt Rate > 60; Glucose Fasting 104 mg/dL (60-99); HDL Cholesterol 54 mg/dL (>40); LDL Cholesterol Calculated 124 mg/dL (<100); Potassium 4.1 mmol/L (3.3-5.1); Sodium 139 mmol/L (135-145); TSH reflex Free T4 0.66 uIU/mL (0.32-4.0); Total Protein 7.9 g/dL (6.5-8.0); Triglycerides 104 mg/dL (<150)
[2024-01-31 12:58] LABS: Alkaline Phosphatase 102 U/L (39-117)
== END 2024-01-31 08:59 | disposition home or self-care (01) ==
LOC: HO.WFDLDS 08:58
PROVIDERS: Visit Provider Nurse Practitioner Family
DX: Z00.00 Encounter for general adult medical examination without abnormal findings (principal)
CPT/HCPCS: 36415; 80053; 80061; 81003; 84443; 85025

== ENCOUNTER 2024-02-05 13:48 | Outpatient (AMB) | payer OTHER, SELFPAY ==
--- NOTE | 2024-02-05 14:30 | A.OFFVIS_ITS ---
VS Expanded 02/05/24 14:31 02/05/24 14:38 Height 5 ft 5 in 5 ft 5 in Weight 208 lb 15.971 oz 209 lb BMI 34.8 34.8 Intake Visit Reasons: Obesity Allergies seasonal allergies Allergy (Intermediate, Uncoded 01/31/24 08:14) Itchy Eyes Nutrition Presentation Details: Pt presents for MNT for Obesity food frequency fish 1-2/week fruits : 0-1/d vegetables: 3-4 x/wk yogurt 1/d eating out daily (sushi or cheddar broccoli soup mc chicken fries ) physical activity: daily life etoh/smoking---- BS Monitoring Most Recent Diabetes Results: Cholesterol 198 mg/dL (<200) 01/31/24 HDL Cholesterol 54 mg/dL (>40) 01/31/24 Triglycerides 104 mg/dL (<150) 01/31/24 Creatinine 0.79 mg/dL (0.5-1.4) 01/31/24 Blood Urea Nitrogen 13 mg/dL (9-16) 01/31/24 Sodium 139 mmol/L (135-145) 01/31/24 Potassium 4.1 mmol/L (3.3-5.1) 01/31/24 Chloride 104 mmol/L (96-108) 01/31/24 Carbon Dioxide 26 mmol/L (22-29) 01/31/24 Calcium 9.5 mg/dL (8.4-10.2) 01/31/24 AST 54 U/L (5-31) H 01/31/24 ALT 43 U/L (0-31) H 01/31/24 Total Protein 7.9 g/dL (6.5-8.0) 01/31/24 Albumin 4.5 g/dL (3.5-5.0) 01/31/24 ONA-Fcgixje-Bl.Jeor Equation Height: 5 ft 5 in Weight: 209 lb Resting Metabolic Rate: 1650.66 Calculated Activity Level: Sedentary Calories Needed to Maintain Weight: 1980.79 Diagnosis Nutrition problem #1: food nutri know defi As related to (etiology) #1: diagnosis As evidenced by (sign/symptom) #1: knowledge deficit of diet [facility] Medical History Chronic tonsillitis History of COVID-19 Fibromyalgia Anxiety and depression History of depression History of insomnia Mild intermittent asthma Low back pain Hx of ectopic Surgical History Hx of unilateral salpingectomy History of loop electrical excision procedure (LEEP) Family History Mother Arthritis Fibromyalgia HTN (hypertension) Hyperlipidemia Mental health disorder Father HTN (hypertension) Arthritis Hyperlipidemia Paternal Grandmother Diabetes Maternal Grandmother Heart disease Social History Household Members: Family Housing: Apartment Alcohol intake: current Patient Tobacco Use Status: Never used Tobacco e-Cigarette/Vaping Use: Never Used Second Hand Smoke Exposure: No service: No Current occupational status: employed 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 Current occupational exposures/hazards: No Cognitive needs: No Hearing needs: No Vision needs: No Assessment & Plan Assessment & Plan (1) Obesity (BMI 30.0-34.9): Code(s): E66.9 - Obesity, unspecified Category: Medical Plan: Wt: 95 Kg ( 02/17) Est kcal needs as per MSJ: 1900 (40% carb, 30% protein/fat) Est fluid needs as per 25-30 ml/d: 2900 Est prot per day as per 1 g/kg bw: 95 Recommend fiber intake : 8-10 g per day and gradually increase to 25-28 g per day for women and 35-38 g for men or as tolerated Recommend sodium intake per day : less than 1500 mg less than 2000 mg Educated patient on: ( R = reviewed V = verbalizes understanding N/R = needs review N/A = not applicable * Food sources of carbohydrate, adequate serving sizes and its role in various health conditions: R * Differences between complex carbohydrates a simple carbohydrates, role of fiber in diet: R * Lean protein sources of foods: R * Differences between types of fats and role in diet (mono on saturated fat fatty acids, saturated fatty acids, trans fats): R V N/R * Food sources of sodium in salt and healthy modifications for heart health in kidney health: R V R/V * Vitamins and minerals: R V N/R * Healthy plate method concept: R V N/R * Physical activity: Benefits a precaution: R V N/R * Hypoglycemia protocol (rule of 15): R V N/R * Dietary prevention of Hyperglycemia: R Patient Instructions: Follow healthy plate method Reducing total carb per meal to less than 60 g and snack 0-20 g Choose water /low sugar beverages see list of meals ideas Coding Level of Care Code Nutr Indiv Intake (06696) Diagnoses Obesity (BMI 30.0-34.9) E66.9 Time Spent (min) 30
[2024-02-05 14:31] VITALS: BMI 34.8
[2024-02-06 14:42] VITALS: BMI 34.8
== END 2024-02-05 14:53 | disposition home or self-care (01) ==
PROVIDERS: PCP Nurse Practitioner Family; Visit Provider Dietitian, Registered
DX: E66.9 Obesity, unspecified (principal)

== ENCOUNTER → 2024-02-05 13:48 | Outpatient (BNVA) | payer OTHER, SELFPAY | PROVIDERS: PCP Nurse Practitioner Family; Visit Provider Dietitian, Registered | DX: E66.9 Obesity, unspecified (principal); Z71.3 Dietary counseling and surveillance; Z68.34 Body mass index [BMI] 34.0-34.9, adult | CPT/HCPCS: 97802 ==

== ENCOUNTER 2024-02-15 08:29 | Outpatient (AMB) | payer OTHER, SELFPAY ==
--- NOTE | 2024-02-15 08:52 | A.OFFPC_ITS ---
Vital Signs 02/15/24 08:57 Height 5 ft 5 in Weight 206 lb 4 oz BMI 34.3 BP 103/63 Blood Pressure Location Lt brachial Position Sitting Respiration 16 Pulse 70 Pulse Source Pulse Oximeter Temp 97.5 F Temp Source Temporal Artery Scan Pulse Oximetry (%) 98 Oxygen Delivery Method Room Air Intake Visit Reasons: 2 wks, anxiety, depression, labs review Intake Note: f/u for anxiety and depression Allergies seasonal allergies Allergy (Intermediate, Uncoded 02/15/24 09:00) Itchy Eyes Medication List - Last Reconciled 02/15/24 by Prince Lindo CNP albuterol sulfate 90 mcg/actuation (Ventolin HFA) 2 puffs inhalation Q4-6H PRN duloxetine 30 mg PO .QD 30 days Tobacco use date assessed: 01/31/24 Dental Screening Dental Screen Date: 01/31/24 HPI HPI Comments History of Present Illness Details The patient is a 33-year-old female presenting with generalized anxiety disorder and mild major depressive disorder. She is currently on duloxetine 30 mg, which she has been compliant with, reporting no adverse reactions. Although there is some improvement in her symptoms, she continues to experience issues with sleep. She notably wakes up in the middle of the night and attributes some of the sleep disturbances to the anxiety and depression. She has been advised on lifestyle modifications in conjunction with her bell captain's guidance, aiming to ameliorate symptoms and improve overall health. Dietary changes include reducing fast food intake and choosing healthier alternatives such as fruits, yogurt, and salads. She has also been counseled about her cholesterol levels, currently 198 mg/dL for total cholesterol and 124 mg/dL for LDL, both within a concerning range. Her liver enzymes have been slightly elevated, likely due to obesity. The fasting blood glucose level showed slight elevation at 104 mg/dL, warranting further monitoring. Recent lifestyle modifications aim to address these continuing issues. [facility] Medical History Chronic tonsillitis History of COVID-19 Fibromyalgia Anxiety and depression History of depression History of insomnia Mild intermittent asthma Low back pain Hx of ectopic Surgical History Hx of unilateral salpingectomy History of loop electrical excision procedure (LEEP) Family History Mother Arthritis Fibromyalgia HTN (hypertension) Hyperlipidemia Mental health disorder Father HTN (hypertension) Arthritis Hyperlipidemia Paternal Grandmother Diabetes Maternal Grandmother Heart disease Social History Household Members: Family Housing: Apartment Alcohol intake: current Patient Tobacco Use Status: Never used Tobacco e-Cigarette/Vaping Use: Never Used Second Hand Smoke Exposure: No service: No Current occupational status: employed 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 1. Little interest or pleasure in doing things: several days 2. Feeling down, depressed, or hopeless: several days 3. Trouble falling or staying asleep, or sleeping too much: several days 4. Feeling tired or having little energy: several days 5. Poor appetite or overeating: several days 6. Feeling bad about yourself - or that you are a failure or have let yourself or your family down: several days 7. Trouble concentrating on things, such as reading the newspaper or watching television: several days 8. Moving or speaking so slowly that other people could have noticed. Or the opposite - being so fidgety or restless that you have been moving around a lot more than usual: several days 9. Thoughts that you would be better off or of hurting yourself in some way: not at all Total score: 8 Depression Screening Interpretation: Positive Depression Screening Follow-up: Existing condition and In treatment Depression Screening Done: Yes 61267 - PHQ-9 Billing: Yes Source: Developed by Drs. Jorge Hazel, Carmita Martinez, Eric Duron and colleagues, with an educational emily from [employer]. Thrive Questionnaire Date Thrive assessed: 02/15/24 I am a: Patient What is your living situation today?: I have a steady place to live Within the past 12 months, did the food you bought not last and you didn't have the money to get more?: I choose not to answer this question Within the past 12 months, did you worry whether your food would run out before you got money to buy more?: I choose not to answer this question Do you have trouble paying for medicines?: No Do you have trouble getting transportation to medical appointments?: No Do you have trouble paying your heating and electricity bill?: No Do you have trouble taking care of your child, family member or friend?: No Do you have trouble with day-to-day activities such as bathing, preparing meals, shopping, managing finances, etc.?: No Are you currently unemployed and looking for a job?: No Are you interested in more education?: No Please select the resources that you would like help with: None Currently or been in a relationship where the following occur: No concerns reported THRIVE Score: 0 AUDIT C Alcohol Use Questionnaire (AUDIT-C) 1. How often do you have a drink containing alcohol?: Monthly or less 2. How many drinks containing alcohol do you have on a typical day when you are drinking?: 3 or 4 3. How often do you have six or more drinks on one occasion?: Never Total Score: 2 JAVIER-7 AMB Questionnaire JAVIER-7 Date JAVIER - 7 assessed: 02/15/24 Feeling nervous, anxious, or on edge: 1 = Several days Not being able to stop or control worryin = Several days Worrying too much about different things: 1 = Several days Trouble relaxin = Several days Being so restless that it is hard to sit still: 1 = Several days Becoming easily annoyed or irritable: 1 = Several days Feeling afraid as if something awful might happen: 1 = Several days Total JAVIER-7 score (0-4 normal; 5-9 mild; 10-14 moderate; 15-21 severe): 7 Source: Developed by Drs. Jorge Hazel, Carmita Martinez, Eric Duron and colleagues, with an educational emily from [employer]. JAVIER-7 Assessment Billing JAVIER-7 Assessment Tool: JAVIER-7 Assessment 23933 Review of Systems Const Details: Const Denies chills, Denies fatigue, Denies fever(s), Denies headache(s) and Denies weakness ENT Denies dizziness and Denies headache(s) Card Denies chest pain, Denies lightheadedness, Denies dyspnea and Denies other (Palpitations) Resp Denies cough, Denies dyspnea, Denies wheezing and Denies other ( shortness of breath) GI Denies abdominal pain, Denies melena, Denies hematochezia, Denies change in bowel habits, Denies dyspepsia and Denies nausea Denies hematuria and Denies dysuria Musc Denies abnormal gait, Denies myalgias, Denies arthralgias, Denies numbness and Denies tingling Skin/Breast Denies rash, Denies unusual bruising and Denies wounds Neuro Denies abnormal gait, Denies dizziness, Denies headache(s), Denies memory loss, Denies numbness, Denies Sensory deficit (Neuro), Denies tingling and Denies weakness Psych Reports anxiety, Reports depression, Denies memory loss Endo Denies cold intolerance, Denies fatigue, Denies heat intolerance, Denies polydipsia and Denies polyuria Aller/Immun Denies wheezing Physical exam (Primary Care) Vital Signs: Last Vital Signs Temp 97.5 F 02/15/24 08:57 Pulse 70 02/15/24 08:57 Resp 16 02/15/24 08:57 BP 103/63 02/15/24 08:57 Pulse Ox 98 02/15/24 08:57 Oxygen Delivery Method Room Air 02/15/24 08:57 BMI result Body Mass Index 34.3 Tobacco/Smoking Status: Tobacco use Status Tobacco use date assessed 01/31/24 02/15/24 08:54 Patient Tobacco Use Status Never used Tobacco 02/15/24 08:54 e-Cigarette/Vaping Use Never Used 02/15/24 08:54 PHQ-9: PHQ-9 Score PHQ-9: Total score 8 02/15/24 08:58 Depression Screening Interpretation: Positive Depression Screening Follow-up: Existing condition and In treatment Thrive Assessment: Date of Thrive Assessment Date Thrive assessed 02/15/24 02/15/24 08:58 Currently or been in a relationship where the following occur: No concerns reported Const Other: General: no acute distress and well developed Nutritional Appearance: well nourished Orientation/consciousness: patient oriented x3 HENMT Head: Yes normocephalic and Yes atraumatic Eyes General: appearance normal, both eyes and all related structures Pupils: Equal, round and reactive pupils present EOM: EOMs intact bilaterally Resp Effort & Inspection: normal respiratory effort Auscultation: clear to auscultation bilaterally Cardio Rate: regular rate Rhythm: regular rhythm Heart sounds: S1 normal heart sound present, S2 normal heart sound present, no gallops, no murmurs and no rubs GI Palpation (GI): No Abdominal aortic bruit present, Soft to palpation, nontender, No hepatosplenomegaly present and No Rebound tenderness present Auscultation: normal bowel sounds General: Yes no CVA tenderness Back/Spine/Pelvis Back: no CVA tenderness Extrem General: Yes normal to inspection, No edema and No calf tenderness Skin General: warm and dry. Normal skin color. Normal skin turgor Neuro General: patient oriented x3, gait normal and no focal neuro deficit Cranial nerves: Yes Equal, round and reactive pupils present Cognition (Neuro): normal cognition Gait exam (Neuro): Normal gait present Sensory Exam: No Sensory deficit (Neuro) Psych Appearance: grossly normal Affect: normal affect Attitude: cooperative Thought process: Normal thought process present Coding Level of Care Code Est Pt Level 4 (14440) Diagnoses Anxiety and depression F41.9; F32.A Obesity (BMI 30.0-34.9) E66.9 Transaminitis R74.01 Elevated fasting glucose R73.01 Additional Codes JAVIER-7 Assessment Billing - JAVIRE-7 Assessment Tool: JAVIER-7 Assessment 44110 ([id number]) PHQ-9 - 17488 - PHQ-9 Billing: Yes ([id number]) Assessment & Plan Assessment & Plan (1) Anxiety and depression: Code(s): F41.9 - Anxiety disorder, unspecified; F32.A - Depression, unspecified Category: Medical Plan: Continue duloxetine 30 mg. Emphasize the importance of exercise to aid mood and sleep improvement. (2) Obesity (BMI 30.0-34.9): Code(s): E66.9 - Obesity, unspecified Category: Medical Plan: Focus on dietary modifications and initiate a regular exercise regimen. (3) Transaminitis: Code(s): R74.01 - Elevation of levels of liver transaminase levels Category: Medical Plan: Encourage weight loss and dietary changes to improve liver function. (4) Elevated fasting glucose: Code(s): R73.01 - Impaired fasting glucose Category: Medical Plan: Likely hepatic steatosis Retest fasting glucose, ensuring a 10-12 hour fasting period. Orders: Orders Glucose Fasting Today R73.01 - Impaired fasting glucose Patient Instructions: The management plan includes a continuation of current medication for anxiety and depression, with the expectation of further improvement over the next 4-6 weeks. I discussed the necessity of dietary changes to manage cholesterol levels and the importance of regular exercise in improving sleep and mood. Advised on potential implications of slightly elevated liver enzymes likely due to obesity, highlighting the benefit of weight management. Discussed the need for fasting glucose retesting and highlighted longitudinal observation of glucose levels. Follow-up visit scheduled in one month, with interim labs to be done prior. - Continue taking duloxetine as prescribed. - Follow dietary recommendations provided by the bell captain. - Commence regular physical exercise and monitor any improvements in sleep and mood. - Reduce intake of red meat and full-fat dairy products. - Return for a follow-up visit in one month. - Complete blood work for fasting glucose before the next appointment. - Seek medical care sooner if experiencing new symptoms or concerns. Patient was informed and verbally consented to the use of an ambient scribe for clinic note documentation during this visit.
[2024-02-15 08:57] VITALS: BP 103/63; PULSE 70; RESP 16; TEMP 36.4; O2SAT 98; BMI 34.3
== END 2024-02-15 09:10 | disposition home or self-care (01) ==
PROVIDERS: PCP Nurse Practitioner Family; Visit Provider Nurse Practitioner Family
DX: F41.9 Anxiety disorder, unspecified (principal); F32.A Depression, unspecified; E66.9 Obesity, unspecified; Z68.34 Body mass index [BMI] 34.0-34.9, adult; R74.01 Elevation of levels of liver transaminase levels; R73.01 Impaired fasting glucose

== ENCOUNTER → 2024-02-15 08:29 | Outpatient (BNVA) | payer OTHER, SELFPAY | PROVIDERS: PCP Nurse Practitioner Family; Visit Provider Nurse Practitioner Family | DX: F41.9 Anxiety disorder, unspecified (principal); F32.A Depression, unspecified; E66.9 Obesity, unspecified; Z68.34 Body mass index [BMI] 34.0-34.9, adult; R74.01 Elevation of levels of liver transaminase levels; R73.01 Impaired fasting glucose; Z71.3 Dietary counseling and surveillance | CPT/HCPCS: 96127; 99212 ==

== ENCOUNTER 2024-10-25 11:22 | Outpatient (AMB) | payer OTHER, SELFPAY ==
--- OUTSIDE RECORDS SUMMARY | 2024-10-25 11:26 | XMS_ITS | Encounter Summary ---
Author Organization [facility] Address [address] [place] [address] Care Team Providers Care Psychological Operations Officer Name Role Phone Ceferino Cooney MD Primary Care Provider [phone] Encounter Details Date Type Department Care Team (Latest Contact Info) Description 08/12/2024 Lab Requisition [facility] [address] [facility] [place] [address] Tiana Bolden MD [address] [facility] [address] [place] [address] Encounter for screening for infections with a predominantly sexual mode of transmission Social History Tobacco Use Types Packs/Day Years Used Date Smoking Tobacco: Never Smokeless Tobacco: Never Alcohol Use Standard Drinks/Week Comments No 0 (1 standard drink = 0.6 oz pur e alcohol) Comments Unknown Sex and Gender Information Value Date Recorded Sex Assigned at Not on file Legal Sex Female 1:55 AM EST Gender Identity Not on file Sexual Orientation Not on file documented as of this encounter Plan of Treatment Not on file documented as of this encounter Procedures Procedure Name Priority Date/Time Associated Diagnosis Comments CHLAMYDIA TRACHOMATIS AND NEISSERIA GONORRHOEAE PCR Routine 08/12/2024 12:00 AM EDT Encounter for screening for infections with a predominantly sexual mode of transmission documented in this encounter Results * Chlamydia trachomatis and Neisseria gonorrhoeae molecular study (08/12/2024 12:00 AM EDT) Neisseria gonorrhoeae PCR Negative Negative LAB MOLECULAR DIAGNOSTICS METHOD 08/12/2024 3:50 PM EDT [facility] Chlamydia trachomatis PCR Negative Negative LAB MOLECULAR DIAGNOSTICS METHOD 08/12/2024 3:50 PM EDT [facility] Swab Cervix uteri structure / Unknown 08/12/2024 08/12/2024 12:30 PM EDT us Tiana Bolden MD LAB MICROBIOLOGY - GENER AL ORDERABLES Final Result [facility] [address] [place] [address], documented in this encounter Visit Diagnoses Diagnosis Encounter for screening for infections with a predominantly sexual mode of transmission documented in this encounter Care Teams Psychological Operations Officer Relationship Specialty Start Date End Date Ceferino Cooney MD [address] [place] [address] PCP - General Internal Medicine 10/31/13 documented as of this encounter
--- NOTE | 2024-10-25 11:31 | A.OFFPC_ITS ---
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 - Needs for work - Denies travel history outside the [facility] try. - Reports no cough, fever, night sweats, or weight loss. - No exposure to tuberculosis. - ED FU: ED visit x 2 for kidney infecti on; no records available. States went x 1 they wanted to admit but she declined; given oral ABT and returned d/t cont pain in her back. Was given IV AB and d/c on PO ABT which she remains on. Reports all labs have improved and she is feeling better Review of Systems - Respiratory: Denies cough, night sweat s, weight loss, or fever. - Travel: Denies recent travel outside t country. - Past Infection: Reports kidney infecti on treated recently. Physical Exam General: Well developed, well nourished, in no acute distress. Appears stated age. Head: Normocephalic, atraumatic. Eyes: Pupils are equal, round and reactive to light and accommodation. Conjunctivae are clear. Vision grossly normal. Lungs: Clear to auscultation bilaterally. No rales, rhonchi or wheeze noted. Good air flow in all huynh. Heart: Regular rate and rhythm. No murmurs, click, rubs or gallops are noted. Abdomen: No CVAT Psych: Mood and affect appropriate. Discussion Notes I explained the tuberculosis testing options, including the TB Gold blood test, which is preferred due to its accuracy. I informed the patient about how results would be communicated through our patient portal and reassured her that antibiotics for her kidney infection would not affect the TB test results. We discussed that the aim is to have a negative TB result, but in the unlikely event it is positive, further testing and management would be necessary. I reviewed the portal messaging protocol, emphasizing that no news is good news. Patient was given time to ask questions. All questions were answered to their satisfaction. Assessment and Plan 1. Tuberculosis Screening - QuantiFERON-TB Gold blood test ordered . - Portal results notification. 2. ED FU: Kidney Infection - Complete ABT. Hydrate well. - Monitor symptoms. - Advise further evaluation if symptoms return. Patient Instructions - You will receive your TB test results through the patient portal. - Monitor your symptoms, especially rega rding your previous kidney infection. - Contact us if you experience any new o r recurring pain or symptoms. - FU with PCP, Dr Lindo, as scheduled. Consent: Patient was informed and verbally consented to the use of an ambient scribe for clinic note documentation during this visit. Total time spent caring for the patient today was 30 minutes. This includes time spent before the visit reviewing the chart, time spent during the visit, and time spent after the visit on documentation, reviewing laboratory results, diagnostic imaging, medications, performing a medically necessary evaluation, counseling on diagnoses, care coordination, ordering appropriate tests, ordering appropriate medications, review of tests performed by other providers, reporting test results with the patient, communication with other healthcare providers. COUNT INCLUDES THE [facility] Medical History Chronic tonsillitis History of COVID-19 Fibromyalgia Anxiety and depression History of depression History of insomnia Mild intermittent asthma Low back pain Hx of ectopic Surgical History Hx of unilateral salpingectomy History of loop electrical excision procedure (LEEP) Family History Mother Arthritis Fibromyalgia HTN (hypertension) Hyperlipidemia Mental health disorder Father HTN (hypertension) Arthritis Hyperlipidemia Paternal Grandmother Diabetes Maternal Grandmother Heart disease Social History Household Members: Family Housing: Apartment Alcohol intake: current Patient Tobacco Use Status: Never used Tobacco e-Cigarette/Vaping Use: Never Used Second Hand Smoke Exposure: No service: No Current occupational status: employed 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 1. Little interest or pleasure in doing things: several days 2. Feeling down, depressed, or hopeless: more than half the days 3. Trouble falling or staying asleep, or sleeping too much: several days 4. Feeling tired or having little energy: several days 5. Poor appetite or overeating: several days 6. Feeling bad about yourself - or that you are a failure or have let yourself or your family down: more than half the days 7. Trouble concentrating on things, such as reading the newspaper or watching television: several days 8. Moving or speaking so slowly that other people could have noticed. Or the opposite - being so fidgety or restless that you have been moving around a lot more than usual: several days 9. Thoughts that you would be better off or of hurting yourself in some way: not at all Total score: 10 Depression Screening Interpretation: Positive Depression Screening Follow-up: Existing condition and In treatment Depression Screening Done: Yes 54759 - PHQ-9 Billing: Yes Source: Developed by Drs. Jorge Hazel, Carmita Martinez, Eric Duron and colleagues, with an educational emily from [employer]. Thrive Questionnaire Date Thrive assessed: 10/25/24 I am a: Patient What is your living situation today?: I have a steady place to live Within the past 12 months, did the food you bought not last and you didn't have the money to get more?: I choose not to answer this question Within the past 12 months, did you worry whether your food would run out before you got money to buy more?: I choose not to answer this question Do you have trouble paying for medicines?: No Do you have trouble getting transportation to medical appointments?: No Do you have trouble paying your heating and electricity bill?: I choose not to answer this question Do you have trouble taking care of your child, family member or friend?: I choose not to answer this question Do you have trouble with day-to-day activities such as bathing, preparing meals, shopping, managing finances, etc.?: I choose not to answer this question Are you currently unemployed and looking for a job?: I choose not to answer this question Are you interested in more education?: I choose not to answer this question Please select the resources that you would like help with: None Currently or been in a relationship where the following occur: No concerns reported THRIVE Score: 0 AUDIT C Alcohol Use Questionnaire (AUDIT-C) 1. How often do you have a drink containing alcohol?: Monthly or less 2. How many drinks containing alcohol do you have on a typical day when you are drinking?: 1 or 2 3. How often do you have six or more drinks on one occasion?: Never Total Score: 1 Score Reviewed/Action Taken: Yes JAVIER-7 AMB Questionnaire JAVIER-7 Date JAVIER - 7 assessed: 10/25/24 Feeling nervous, anxious, or on edge: 1 = Several days Not being able to stop or control worryin = Several days Worrying too much about different things: 1 = Several days Trouble relaxin = Several days Being so restless that it is hard to sit still: 1 = Several days Becoming easily annoyed or irritable: 1 = Several days Feeling afraid as if something awful might happen: 1 = Several days Total JAVIER-7 score (0-4 normal; 5-9 mild; 10-14 moderate; 15-21 severe): 7 Source: Developed by Drs. Jorge Hazel, Carmita Martinez, Eric Duron and colleagues, with an educational emily from [employer]. JAVIER-7 Assessment Billing JAVIER-7 Assessment Tool: JAVIER-7 Assessment 04112 Physical exam (Primary Care) Vital Signs: Last Vital Signs Temp 97.2 F 10/25/24 11:34 Pulse 74 10/25/24 11:34 Resp 12 10/25/24 11:34 BP 99/68 10/25/24 11:34 Pulse Ox 99 10/25/24 11:34 Oxygen Delivery Method Room Air 10/25/24 11:34 BMI result Body Mass Index 32.4 BMI Assessment/Plan discussion: High BMI High, discussed plan: lifestyle Tobacco/Smoking Status: Tobacco use Status Tobacco use date assessed 10/25/24 10/25/24 11:36 Patient Tobacco Use Status Never used Tobacco 10/25/24 11:32 e-Cigarette/Vaping Use Never Used 10/25/24 11:32 PHQ-9: PHQ-9 Score PHQ-9: Total score 10 10/25/24 12:03 Depression Screening Interpretation: Positive Depression Screening Follow-up: Existing condition and In treatment Thrive Assessment: Date of Thrive Assessment Date Thrive assessed 10/25/24 10/25/24 11:32 Currently or been in a relationship where the following occur: No concerns reported Coding Level of Care Code Est Pt Level 4 (45335) Complex EM visit Add On G2211 Diagnoses Hospital discharge follow-up Z09 Tuberculosis screening Z11.1 Obesity (BMI 30-39.9) E66.9 Additional Codes JAVIER-7 Assessment Billing - JAVIER-7 Assessment Tool: JAVIER-7 Assessment 75853 ([id number]) PHQ-9 - 67499 - PHQ-9 Billing: Yes ([id number]) Assessment & Plan Assessment & Plan (1) Hospital discharge follow-up: Code(s): Z09 - Encounter for follow-up examination after completed treatment for conditions other than malignant neoplasm (2) Tuberculosis screening: Code(s): Z11.1 - Encounter for screening for respiratory tuberculosis Category: Medical (3) Obesity (BMI 30-39.9): Code(s): E66.9 - Obesity, unspecified Plan . Orders: Orders T Spot TB Today Z11.1 - Encounter for screening for respiratory tuberculosis
[2024-10-25 11:34] VITALS: BP 99/68; PULSE 74; RESP 12; TEMP 36.2; O2SAT 99; BMI 32.4
== END 2024-10-25 11:57 | disposition home or self-care (01) ==
LOC: HO.HMCFM 11:23
PROVIDERS: PCP Nurse Practitioner Family; Visit Provider Nurse Practitioner Family
DX: E66.9 Obesity, unspecified (principal); Z68.32 Body mass index [BMI] 32.0-32.9, adult; Z09 Encounter for follow-up examination after completed treatment for conditions other than malignant neoplasm; Z11.1 Encounter for screening for respiratory tuberculosis

== ENCOUNTER → 2024-10-25 11:22 | Outpatient (BNVA) | payer OTHER, SELFPAY | PROVIDERS: PCP Nurse Practitioner Family; Visit Provider Nurse Practitioner Family | DX: Z09 Encounter for follow-up examination after completed treatment for conditions other than malignant neoplasm (principal); E66.9 Obesity, unspecified; Z68.32 Body mass index [BMI] 32.0-32.9, adult; Z13.31 Encounter for screening for depression; Z13.39 Encounter for screening examination for other mental health and behavioral disorders | CPT/HCPCS: 96127; 99212 ==

== ENCOUNTER 2024-10-28 09:06 | Outpatient (REF) | payer OTHER, SELFPAY ==
--- OUTSIDE RECORDS SUMMARY | 2024-10-28 09:33 | XMS_ITS | Encounter Summary ---
Author Organization 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 Name Role Phone Ceferino Cooney MD Primary Care Provider [phone] Encounter Details Date Type Department Care Team (Latest Contact Info) Description 08/12/2024 Lab Requisition [facility] [address] [place] [address] Tiana Bolden MD [address] [place] [address] Encounter for screening for infections [...] MOLECULAR DIAGNOSTICS METHOD 08/12/2024 3:50 PM EDT [facility] Chlamydia trachomatis PCR Negative Negative LAB MOLECULAR DIAGNOSTICS METHOD 08/12/2024 3:50 PM EDT [facility] Swab Cervix uteri structure / Unknown 08/12/2024 08/12/2024 12:30 PM EDT us Tiana Bolden MD LAB MICROBIOLOGY - GENER AL ORDERABLES Final Result [facility] [address] [place] [address], documented in this encounter Visit Diagnoses Diagnosis Encounter for screening for infections with a predominantly sexual mode of transmission documented in this encounter Care Teams Armored Cable Machine Operator Relationship Specialty Start Date End Date Ceferino Cooney MD [address] [place] [address] PCP - General Internal Medicine 10/31/13 documented as of this encounter
[2024-10-31 05:19] LABS: TS Negative Control Passed; TS Panel A 0; TS Panel B 0; TS Positive Control Passed; TSpotTB Negative (Negative)
== END 2024-10-28 09:07 | disposition home or self-care (01) ==
LOC: HO.WFDLDS 09:06
PROVIDERS: Visit Provider Nurse Practitioner Family
DX: Z11.1 Encounter for screening for respiratory tuberculosis (principal); R73.01 Impaired fasting glucose
CPT/HCPCS: 36415; 86481